=== PATIENT | female | born 1970 | race Caucasian/White ===

== ENCOUNTER 2016-11-20 22:35 | Emergency (ER) | payer OTHER ==
[~2016-11-20] VITALS: Ht 154.9 cm; Wt 130.9 kg
[~2016-11-20 22:35] MED LIST: CARISOPRODOL MC; CIPRO500 MG PO; ENDOCET 5-3251 EAC1 PO; FLONASE16 G1 BOTH NARES; FLONASE16 GM NS; IMITREX100 MG PO; LEVOTHROID,SY0.05 MG PO; PROPANOLOL; PROPRANOLOL HCL40 MG PO; SIMVASTATIN5 MG PO; SYNTHROID75 MCG PO; TOPAMAX200 MG PO; TOPRIMATE; VITAMIN D2000 UNIT PO; XYZAL2.5 MG/5 M PO; ZOFRAN ODT8 MG PO
[2016-11-20 23:21] LABS: HEMATOCRIT 38.2 % (36.0-46.0); MCH 27.6 PG (29.0-34.0); MCHC 32.2 G/DL (30.0-36.0); MCV 85.8 FL (83-99); MEAN PLAT.VOLUME 9.1 uM^3 (9.5-12.4); PLATELET COUNT 398 K/uL (156-360); RBC DIS.WIDTH-CV 13.3 % (11.8-14.6); RBC DIS.WIDTH-SD 41.3 % (39-53); RED BLOOD COUNT 4.45 M/uL (3.80-5.20); WHITE BLOOD COUNT 11.5 K/uL (4.1-10.2)
[2016-11-20 23:28] LABS: CHLORIDE 111 mEq/L (99-109); SODIUM 138 mEq/L (136-147)
[2016-11-20 23:30] LABS: GLUCOSE 119 mg/dL (70-99)
[2016-11-20 23:34] LABS: ANION GAP 10 MEQ/L (2-14); GFR ESTIMATE (CALCULATED) > 59 mL/min/
[2016-11-20 23:35] LABS: UREA NITROGEN (BUN) 16 mg/dL (9-23)
[2016-11-20 23:43] LABS: TROP-I INTERPRETATION NEGATIVE; TROPONIN-I < 0.01 ng/mL (0.0-0.30)
[2016-11-21 01:32] VITALS: BP 171/89
== END 2016-11-21 01:33 | disposition home or self-care (01) ==
LOC: EXP 22:35 → EME 22:35 → EXP 11-21 01:33
DX: R53.82 Chronic fatigue, unspecified (principal); M79.1 Myalgia; R06.02 Shortness of breath; R42 Dizziness and giddiness; M54.6 Pain in thoracic spine; R07.81 Pleurodynia; R63.1 Polydipsia; I10 Essential (primary) hypertension; E78.5 Hyperlipidemia, unspecified; R73.03 Prediabetes; Z83.3 Family history of diabetes mellitus; Z82.49 Family history of ischemic heart disease and other diseases of the circulatory system; Z87.891 Personal history of nicotine dependence
CPT/HCPCS: 71020; 80048; 84443; 84484; 85027; 93005; 99281; 99284